=== PATIENT | female | born 1970 | race Caucasian/White ===

== ENCOUNTER 2022-12-10 08:36 | Inpatient (IN) | payer OTHER ==
[~2022-12-10] VITALS: Ht 177.8 cm; Wt 82.3 kg
[2022-12-10 09:20] LABS: BASOPHILS % (AUTO) 0.2 % (0-1); EOSINOPHILS % (AUTO) 0.4 % (0-6); HEMOGLOBIN 16.2 g/dl (12.0-16.0); LYMPHOCYTES # (AUTO) 1.5 X10'3 (1.1-4.8); LYMPHOCYTES % (AUTO) 16.9 % (21-51); MEAN CORPUSCULAR HEMOGLOBIN 33.4 PG (27.0-31.0); MEAN CORPUSCULAR HGB CONC 35.3 g/dL (33.0-36.5); MEAN CORPUSCULAR VOLUME 94.8 FL (78-98); MEAN PLATELET VOLUME 7.7 FL (7.4-10.4); MONOCYTES # (AUTO) 1.1 X10'3 (0-0.9); MONOCYTES % (AUTO) 12.1 % (2-12); NEUTROPHILS # (AUTO) 6.2 X10'3 (1.8-7.7); NEUTROPHILS % (AUTO) 70.4 % (42-75); PLATELET COUNT 208 X10'3 (140-440); RED BLOOD COUNT 4.85 X10'6 (4.20-5.60); RED CELL DISTRIBUTION WIDTH 12.6 % (11.5-14.5); WHITE BLOOD COUNT 8.8 X10'3 (4.5-11.0)
[2022-12-10 09:29] LABS: ALANINE AMINOTRANSFERASE 103 U/L (12-78); ALKALINE PHOSPHATASE 95 IU/L (46-116); ASPARTATE AMINO TRANSFERASE 54 U/L (10-37); BLOOD UREA NITROGEN 7 MG/DL (7-18); CALCIUM 9.3 MG/DL (8.5-10.1); GLUCOSE 175 MG/DL (70-104); LIPASE 211 U/L (73-393); TOTAL CARBON DIOXIDE 34.6 MMOL/L (24-32); TOTAL PROTEIN 7.9 G/DL (6.4-8.2); eGFR 87 ML/MIN
[2022-12-10 09:53] LABS: ANION GAP 8 (8-16); CHLORIDE 81 MMOL/L (99-107); SODIUM 124 MMOL/L (135-145)
[2022-12-10 09:57] LABS: POTASSIUM 2.5 MMOL/L (3.5-5.1)
[2022-12-10] MEDS ORDERED: POTASSIUM BICARB 20meq eff tab 20 MEQ TABLET.EFF PO ONE (10:30)
[2022-12-10] MEDS ORDERED: magnesium 2GM in 50ml NS 50 ML IV ONE (10:30)
[2022-12-10 10:35] LABS: CLARITY,URINE CLOUDY (Clear); COLOR,URINE YELLOW (Yellow); GLUCOSE, URINE NEGATIVE (Neg); KETONES,URINE NEGATIVE (Neg); LEUKOCYTE ESTERASE ,URINE TRACE (Neg); NITRITES, URINE POSITIVE (Neg); OCCULT BLOOD,URINE MODERATE (Neg); PROTEIN,URINE NEGATIVE (Neg); UROBILINOGEN,URINE 0.2 E.U/dL (0.2-1.0)
[2022-12-10 10:37] LABS: UA COLLECTION TYPE CLN CATCH MIDSTREAM
[2022-12-10 10:40] LABS: BACTERIA,URINE 4+ /HPF (Neg); MUCUS STRANDS FEW /LPF (Neg); SQUAMOUS EPITHELIAL CELL,UR MANY /LPF (FEW); URINE HCG NEGATIVE (NEG)
[2022-12-10 10:41] LABS: TRANSITIONAL EPI CELLS,URINE FEW /HPF; WBC CLUMPS,URINE FEW /HPF (NEGATIVE)
[2022-12-10 11:24] LABS: MAGNESIUM 2.2 MG/DL (1.5-2.4)
[2022-12-10] MEDS ORDERED: iohexol 300mg/ml 100ml inj. ONE (11:33)
--- NOTE | 2022-12-10 12:38 | NUR ---
PT RESTING ON [facility] - SHE IS GIVEN A PHONE AND HAD A VISITOR AT BEDSIDE
[2022-12-10] MEDS ORDERED: metoclopramide 5 mg/ml inj IV PRN (13:05)
[2022-12-10] MEDS ORDERED: acetaminophen 650mg rectal suppository RC PRN (13:05)
[2022-12-10] MEDS ORDERED: mag hydrox/Alum hydrox/simeth 30ml oral suspension PO PRN (13:05)
[2022-12-10] MEDS ORDERED: bisacodyl 10mg suppository rectal RC PRN (13:05)
[2022-12-10] MEDS ORDERED: magnesium Cl slow-release 64mg tablet PO PRN (13:05)
[2022-12-10] MEDS ORDERED: acetaminophen 325mg tablet PO PRN ×2 (13:05)
[2022-12-10] MEDS ORDERED: magnesium 4gm in 100ml NS 100 ML IV PRN (13:05)
[2022-12-10] MEDS ORDERED: magnesium 2GM in 50ml NS 50 ML IV PRN (13:05)
[2022-12-10] MEDS ORDERED: ondansetron 4mg rapidly disintigrating tab PO PRN (13:05)
[2022-12-10] MEDS ORDERED: diphenhydrAMINE 25mg capsule PO PRN (13:05)
[2022-12-10] MEDS ORDERED: potassium Cl 20 mEq SR tablet PO PRN ×2 (13:05)
[2022-12-10] MEDS ORDERED: potassium Cl 40MEQ/1/2NS 520ml 520 ML IV PRN (13:05)
[2022-12-10] MEDS ORDERED: magnesium hydroxide 30ml (MOM) UD suspension PO PRN (13:05)
[2022-12-10] MEDS ORDERED: HYDROmorphone/PF 0.2 MG/ML SYRINGE IV PRN (13:05)
[2022-12-10] MEDS ORDERED: ondansetron/PF 4mg/2ml inj IV PRN (13:05)
[2022-12-10] MEDS ORDERED: potassium Cl 20mEq in NS 1,000 ML IV SCH (13:05)
[2022-12-10] MEDS ORDERED: diphenhydrAMINE 50 mg/ml inj IV PRN (13:05)
--- NOTE | 2022-12-10 13:10 | NUR ---
pt ambulatory to restroom with cane and then back to bed
[2022-12-10] MEDS: CefTRIAXone/D5W-Rocephin 1gm 50 ML IV SCH (14:15)
--- NOTE | 2022-12-10 14:18 | NUR ---
Admitting MD to pt bedside at this time
--- NOTE | 2022-12-10 14:30 | NUR ---
Received report from Catalina RING STRIKER nurse.
[2022-12-10] MEDS ORDERED: HYDR25TA5 PO (15:10)
[2022-12-10] MEDS ORDERED: ASCO-10 PO (15:10)
[2022-12-10] MEDS ORDERED: CHOL400T32 PO (15:10)
--- NOTE | 2022-12-10 15:10 | NUR ---
Patient arrived to unit via gurney
[2022-12-10 15:35] VITALS: BP 112/75
[2022-12-10 18:00] VITALS: BP 123/71
--- NOTE | 2022-12-10 18:09 | NUR ---
Problems reprioritized. Patient report given, questions answered & plan of care reviewed with Jonah MCGARRY.
[2022-12-10] MEDS: HYDROcodone/acetaminophen 5mg/325mg tablet PO PRN (18:43)
[2022-12-10] MEDS: K and/or MAG REPLACEMENT MC SCH (20:00)
[2022-12-10] MEDS: docusate sod 100mg capsule PO SCH (20:29)
[2022-12-10] MEDS ORDERED: temazepam 15mg capsule PO PRN (21:00)
--- NOTE | 2022-12-11 06:15 | NUR ---
Patient in room PCU 3016. I have received report from Jonah MCGARRY and had the opportunity to ask questions and assume patient care.
[2022-12-11 07:00] VITALS: BP 109/71
--- NOTE | 2022-12-11 07:02 | NUR ---
Paged PICC to place a new IV.
[2022-12-11 07:08] LABS: BASOPHILS % (AUTO) 0.3 % (0-1); EOSINOPHILS # (AUTO) 0.1 X10'3 (0-0.9); EOSINOPHILS % (AUTO) 1.8 % (0-6); HEMATOCRIT 41.4 % (35.0-45.0); HEMOGLOBIN 14.7 g/dl (12.0-16.0); LYMPHOCYTES # (AUTO) 1.5 X10'3 (1.1-4.8); LYMPHOCYTES % (AUTO) 21.9 % (21-51); MEAN CORPUSCULAR HEMOGLOBIN 33.8 PG (27.0-31.0); MEAN CORPUSCULAR HGB CONC 35.6 g/dL (33.0-36.5); MEAN CORPUSCULAR VOLUME 94.9 FL (78-98); MEAN PLATELET VOLUME 7.9 FL (7.4-10.4); MONOCYTES % (AUTO) 14.4 % (2-12); NEUTROPHILS # (AUTO) 4.1 X10'3 (1.8-7.7); NEUTROPHILS % (AUTO) 61.6 % (42-75); PLATELET COUNT 203 X10'3 (140-440); RED BLOOD COUNT 4.36 X10'6 (4.20-5.60); RED CELL DISTRIBUTION WIDTH 12.6 % (11.5-14.5); WHITE BLOOD COUNT 6.6 X10'3 (4.5-11.0)
[2022-12-11 07:16] LABS: ALANINE AMINOTRANSFERASE 74 U/L (12-78); ALBUMIN 3.4 G/DL (3.4-5.0); ALBUMIN/GLOBULIN RATIO 1.1 (1.1-1.5); ALKALINE PHOSPHATASE 83 IU/L (46-116); ANION GAP 9 (8-16); ASPARTATE AMINO TRANSFERASE 35 U/L (10-37); BILIRUBIN,TOTAL 0.5 MG/DL (0.1-1.0); BLOOD UREA NITROGEN 10 MG/DL (7-18); BUN/CREATININE RATIO 16.9 (10.0-20.0); CHLORIDE 91 MMOL/L (99-107); CREATININE 0.59 MG/DL (0.40-0.90); GLUCOSE 125 MG/DL (70-104); MAGNESIUM 2.3 MG/DL (1.5-2.4); SODIUM 134 MMOL/L (135-145); TOTAL CARBON DIOXIDE 34.5 MMOL/L (24-32); TOTAL PROTEIN 6.6 G/DL (6.4-8.2); eGFR > 90 ML/MIN
[2022-12-11 07:21] LABS: POTASSIUM 2.2 MMOL/L (3.5-5.1)
--- NOTE | 2022-12-11 07:27 | NUR ---
PAGER ID: [phone] MESSAGE: [id number] Lalito Caicedo @ [facility]. IV infiltrated last night I paged PICC nurse to place a new one. Thank You Marj [phone]
[2022-12-11] MEDS: K and/or MAG REPLACEMENT MC SCH ×2 (08:00→20:00)
[2022-12-11] MEDS: docusate sod 100mg capsule PO SCH ×2 (08:46→20:24)
[2022-12-11] MEDS: spironolactone 25 MG tablet PO SCH (08:47)
[2022-12-11] MEDS: enoxaparin 40mg/0.4ml syringe SUBCUT SCH (08:47)
[2022-12-11] MEDS: HYDROcodone/acetaminophen 5mg/325mg tablet PO PRN (09:10)
[2022-12-11] MEDS: CefTRIAXone/D5W-Rocephin 1gm 50 ML IV SCH (10:18)
[2022-12-11] MEDS ORDERED: traMADol 50MG tablet PO PRN (10:30)
--- NOTE | 2022-12-11 10:30 | NUR ---
Spoke with Dr Denton He gave orders to change pain medication from [place] to Tramadol and DC IV NS with 20 meq K. DC the PT eval and treat and encourage patient to walk around unit.
[2022-12-11] MEDS ORDERED: POTASSIUM BICARB 20meq eff tab 20 MEQ TABLET.EFF PO PRN (11:25)
[2022-12-11 11:45] VITALS: BP 108/69
[2022-12-11] MEDS: POTASSIUM BICARB 20meq eff tab 20 MEQ TABLET.EFF PO PRN ×2 (15:12→20:25)
[2022-12-11 15:33] VITALS: BP 106/67
--- NOTE | 2022-12-11 16:47 | NUR ---
I AGREE WITH FREIGHT MANAGER ASSESSMENT
--- NOTE | 2022-12-11 18:49 | NUR ---
Problems reprioritized. Patient report given, questions answered & plan of care reviewed with Bethany ROCK.
--- NOTE | 2022-12-11 18:50 | NUR ---
Patient in room PCU 3016. I have received report from ZEFERINO Patel and had the opportunity to ask questions and assume patient care.
[2022-12-11 19:00] VITALS: BP 113/75
[2022-12-11 22:00] VITALS: BP 115/74
[2022-12-12] MEDS: POTASSIUM BICARB 20meq eff tab 20 MEQ TABLET.EFF PO PRN ×2 (00:46→05:00)
[2022-12-12 02:00] VITALS: BP 111/79
[2022-12-12 06:00] VITALS: BP 113/65
--- NOTE | 2022-12-12 06:48 | NUR ---
Problems reprioritized. Patient report given, questions answered & plan of care reviewed with PRANAV Buitrago.
--- NOTE | 2022-12-12 06:53 | NUR ---
Patient in room PCU 3016. I have received report from Bethany ROCK, and had the opportunity to ask questions and assume patient care.
[2022-12-12 07:34] LABS: BASOPHILS % (AUTO) 0.7 % (0-1); EOSINOPHILS # (AUTO) 0.2 X10'3 (0-0.9); HEMATOCRIT 41.8 % (35.0-45.0); HEMOGLOBIN 14.3 g/dl (12.0-16.0); LYMPHOCYTES # (AUTO) 1.8 X10'3 (1.1-4.8); MEAN CORPUSCULAR HEMOGLOBIN 33.1 PG (27.0-31.0); MEAN CORPUSCULAR HGB CONC 34.3 g/dL (33.0-36.5); MEAN CORPUSCULAR VOLUME 96.4 FL (78-98); MEAN PLATELET VOLUME 7.4 FL (7.4-10.4); MONOCYTES # (AUTO) 0.9 X10'3 (0-0.9); MONOCYTES % (AUTO) 14.1 % (2-12); NEUTROPHILS # (AUTO) 3.2 X10'3 (1.8-7.7); NEUTROPHILS % (AUTO) 53.2 % (42-75); PLATELET COUNT 200 X10'3 (140-440); RED BLOOD COUNT 4.34 X10'6 (4.20-5.60); RED CELL DISTRIBUTION WIDTH 12.8 % (11.5-14.5); WHITE BLOOD COUNT 6.1 X10'3 (4.5-11.0)
[2022-12-12 07:43] LABS: ALANINE AMINOTRANSFERASE 68 U/L (12-78); ALBUMIN 3.2 G/DL (3.4-5.0); ALKALINE PHOSPHATASE 76 IU/L (46-116); ANION GAP 5 (8-16); ASPARTATE AMINO TRANSFERASE 33 U/L (10-37); BILIRUBIN,TOTAL 0.5 MG/DL (0.1-1.0); BLOOD UREA NITROGEN 8 MG/DL (7-18); BUN/CREATININE RATIO 15.4 (10.0-20.0); CALCIUM 8.8 MG/DL (8.5-10.1); CHLORIDE 94 MMOL/L (99-107); CREATININE 0.52 MG/DL (0.40-0.90); GLUCOSE 107 MG/DL (70-104); MAGNESIUM 2.4 MG/DL (1.5-2.4); POTASSIUM 3.5 MMOL/L (3.5-5.1); SODIUM 134 MMOL/L (135-145); TOTAL CARBON DIOXIDE 34.7 MMOL/L (24-32); TOTAL PROTEIN 6.5 G/DL (6.4-8.2); eGFR > 90 ML/MIN
[2022-12-12] MEDS: K and/or MAG REPLACEMENT MC SCH (08:00)
[2022-12-12] MEDS: CefTRIAXone/D5W-Rocephin 1gm 50 ML IV SCH (08:06)
[2022-12-12] MEDS: enoxaparin 40mg/0.4ml syringe SUBCUT SCH (08:07)
[2022-12-12] MEDS: spironolactone 25 MG tablet PO SCH (08:10)
[2022-12-12] MEDS: docusate sod 100mg capsule PO SCH (08:10)
[2022-12-12 11:00] VITALS: BP 105/74
--- NOTE | 2022-12-12 13:09 | NUR ---
Pt stable for discharge per Dr. Denton. Tele discontinued, PIV discontinued. No new medications ordered, Pt educated about Dx, s/s of diagnosis. Pt discharged home. All personal belongings with pt. Nurse wheeled pt to private vehicle.
== END 2022-12-12 13:03 | disposition home or self-care (01) | DRG 641 ==
LOC: ER 08:37 → ED HOLD 13:11 → EDBEDREQ 14:19 → PCU 3S 15:03
PROVIDERS: ADMIT Family Medicine; ATTEND Family Medicine
PROC: BW211ZZ Computerized Tomography (CT Scan) of Abdomen and Pelvis using Low Osmolar Contrast (ICD-10-PCS; principal; 2022-12-10)
DX: E87.6 Hypokalemia (principal); E87.1 Hypo-osmolality and hyponatremia; G62.9 Polyneuropathy, unspecified; G89.29 Other chronic pain; M54.9 Dorsalgia, unspecified; R74.01 Elevation of levels of liver transaminase levels; T50.2X5A Adverse effect of carbonic-anhydrase inhibitors, benzothiadiazides and other diuretics, initial encounter; M25.561 Pain in right knee; M25.562 Pain in left knee; M54.50 Low back pain, unspecified; F31.9 Bipolar disorder, unspecified; F17.210 Nicotine dependence, cigarettes, uncomplicated; I10 Essential (primary) hypertension; J45.909 Unspecified asthma, uncomplicated; Z79.899 Other long term (current) drug therapy; Z88.0 Allergy status to penicillin; Z88.8 Allergy status to other drugs, medicaments and biological substances; Y92.89 Other specified places as the place of occurrence of the external cause
CPT/HCPCS: 36415; 74177; 80053; 81001; 81025; 83605; 83690; 83735; 83930; 84132; 85025; 87081; 99285; G0378; J0696; J1170; J1650; J3475; J3480; J3490; J7030; J7040; Q9967